=== PATIENT | female | born 1955 | race Caucasian/White ===

== ENCOUNTER 2018-01-15 09:05 | Emergency (ER) | payer MEDICARE ==
[~2018-01-15] VITALS: Ht 162.6 cm; Wt 81.1 kg
[~2018-01-15 09:05] MED LIST: ALPR-475 PO; AMLO5TAB4 PO; FERR325T18 PO; GABA300C10 PO; GLIP10TA13 PO; HYDR-3241 PO; INSU100C5 SQ-INSULIN; LEVO500T47 PO; LEVO500T8 PO; LOVA40TA2 PO; POLY17PO5 PO; POTA10TA31 PO
[2018-01-15 10:38] VITALS: BP 155/81
== END 2018-01-15 10:40 | disposition home or self-care (01) ==
LOC: ED 10:00
DX: S52.602A Unspecified fracture of lower end of left ulna, initial encounter for closed fracture (principal); E11.9 Type 2 diabetes mellitus without complications; Z87.891 Personal history of nicotine dependence; W18.30XA Fall on same level, unspecified, initial encounter; Y93.89 Activity, other specified; Y99.8 Other external cause status; Y92.828 Other wilderness area as the place of occurrence of the external cause
CPT/HCPCS: 29125; 99283

== ENCOUNTER 2018-12-15 15:57 | Inpatient (IN) | payer MEDICARE ==
[~2018-12-15] VITALS: Ht 172.7 cm; Wt 89.4 kg
[~2018-12-15 15:57] MED LIST changes: -ALPR-475 PO; +ALPR0.5T7 PO
--- NOTE | 2018-12-15 16:15 | NUR ---
"I FEEL LIKE I'M DRUNK BUT I DON'T DRINK" X THIS AM. SO REPORTS SLURRED SPEECH, "SHE DOESN'T KNOW WHAT SHES SAYING". PT WITH UNSTEADY GATE. A&OX4. FACE SYMMETRICAL, SPEECH CLEAR, +STRENGTH X 4. PT MOSTLY RESTLESS ER PA AT BEDSIDE, PT ANSWERS QUESTIONS APPROPRIATELY BUT ALSO WILL START TALKING ABOUT THINGS THAT WOULD NOT BE IN CONTEXT WITH THE CURRENT SITUATION. FOR EXAMPLE WHILE ASKING ABOUT THE EVENTS OF THIS MORNING SHE WILL SUDDENLY SAY, "I'M AT [facility], THEY PUT THE [address] IN THE BACK CORNER"
[2018-12-15 16:53] LABS: BASOPHILS # (AUTO) 0.02 x10^3/uL (0-0.1); BASOPHILS % (AUTO) 0 % (0-1); EOSINOPHILS # (AUTO) 0.08 x10^3/uL (0-0.4); EOSINOPHILS % (AUTO) 1 % (1-7); LYMPHOCYTES % (AUTO) 10 % (22-44); MD NO; MEAN CORPUSCULAR HEMOGLOBIN 34.7 pg (27.0-34.8); MEAN CORPUSCULAR HGB CONC 33.1 g/dL (32.4-35.8); MEAN PLATELET VOLUME 6.7 fL (7.4-10.4); MONOCYTES # (AUTO) 0.52 x10^3/uL (0.2-0.8); MONOCYTES % (AUTO) 8 % (2-9); NEUTROPHILS # (AUTO) 5.65 x10^3/uL (1.8-6.8); NEUTROPHILS % (AUTO) 81 % (42-75); PLATELET COUNT 229 x10^3/uL (130-400); RED BLOOD COUNT 4.26 x10^6/uL (3.82-5.3)
[2018-12-15 17:04] LABS: ALANINE AMINOTRANSFERASE 62 U/L (12-78); ALBUMIN 4.1 g/dL (3.4-5.0); ANION GAP 8 mmol/L (5-15); CALCIUM 9.1 mg/dL (8.5-10.1); CHLORIDE 109 mmol/L (98-107); CREATININE 1.42 mg/dL (0.55-1.02)
[2018-12-15 17:08] LABS: ALKALINE PHOSPHATASE 113 U/L (45-117); BILIRUBIN,TOTAL 0.4 mg/dL (0.2-1.0); TOTAL PROTEIN 7.5 g/dL (6.4-8.2); TROPONIN I < 0.015 ng/mL (0.000-0.045)
--- NOTE | 2018-12-15 17:17 | NUR ---
PT OOB AND AMBULATE TO BATHROOM. RN STANDBY ASSIST. PT GAIT ATAXIC. INSTRUCTED ON COLLECTION OF URINE SAMPLE. RN REMAINED IN BATHROOM WITH PT. PT WAS NOT COORDINATED TO BE ABLE TO HOLD URINE CUP IN PLACE. URINE HAT PLACED AND PT POSITIONED APPROPRIATELY. RN LEFT BATHROOM AND INSTRUCTED PT TO USE CALL LIGHT WHEN READY TO GET UP. RN THEN WITNESSED PT WALKING INTO HER ROOM. PT HAD VOIDED BUT DID NOT GET ANY OF THE URINE INTO THE COLLECTION HAT. PT SITUATED ON RANCHORAGE, BP AND PULSE OX IN PLACE. SIDE RAILS UP AND CALL LIGHT W/I REACH. PT VERBALIZES TO RN THAT SHE WILL USE CALL LIGHT IF SHE NEEDS TO GET OOB. AWARE OF URINE SAMPLE NOT COLLECTED.
[2018-12-15] MEDS ORDERED: LISI-170 PO (17:44)
[2018-12-15] MEDS ORDERED: GLYB3TAB3 PO (17:44)
--- NOTE | 2018-12-15 17:50 | NUR ---
PT WISPERS TO RN "DO YOU THINK THE DOCTOR THAT IS GOING TO SEE ME WILL GIVE ME ANY SLEEPING PILLS?" I ASKED HER WHY SHE WANTED SLEEPING PILLS, PT REPLIED "I CAN'T SLEEP AT NIGHT, I TAKE 12-16 BENADRYL A NIGHT" I ASKED IF SHE TOOK BENADRYL LAST NIGHT. PT RESPONDED "YES, I TOOK 2"
--- NOTE | 2018-12-15 18:02 | NUR ---
STRAIGHT CATH FOR URINE COLLECTION COMPLETED. 2ND RNALEYDA AT BEDSIDE FOR PROCEDURE. PT TOLLERATED WELL.
[2018-12-15 18:14] LABS: MICROSCOPIC NOT IND
[2018-12-15 18:19] LABS: CULTURE INDICATED? NO
[2018-12-15 18:26] LABS: AMPHETAMINE SCREEN, URINE Negative (Negative); BARBITURATE SCREEN, URINE Negative (Negative); BENZODIAZEPINE SCREEN, URINE Negative (Negative); CANNABINOID SCREEN, URINE Negative (Negative); COCAINE SCREEN, URINE Negative (Negative); METHADONE SCREEN, URINE Negative (Negative); OPIATE SCREEN, URINE Positive (Negative)
--- NOTE | 2018-12-15 18:42 | NUR ---
, RON [phone]
--- NOTE | 2018-12-15 18:42 | NUR ---
DR CHRISTIE AT BEDSIDE, PLAN FOR ADMIT EXPLAINED TO PT. PER PT REQUEST I NOTIFIED HER OF PLAN FOR ADMIT.
--- NOTE | 2018-12-15 19:09 | NUR ---
REPORT GIVEN TO PAULETTE ALBERTO FOR ROOM 419. PRIMARY RN PLACEING IV AT THIS TIME.
[2018-12-15 19:32] LABS: SALICYLATE LEVEL < 1.7 mg/dL (2.8-20.0)
[2018-12-15 20:00] VITALS: BP 120/77
[2018-12-15] MEDS: SODIUM CHLORIDE 0.9% 1,000 ML IV SCH (20:26)
[2018-12-15] MEDS ORDERED: BISACODYL 10 MG SUPP PR PRN (20:30)
[2018-12-15] MEDS ORDERED: GLYBURIDE MICRONIZED 3 MG PO SCH (20:30)
[2018-12-15 21:21] LABS: HEMOGLOBIN A1C 6.8 % (4.2-6.3)
[2018-12-15] MEDS ORDERED: OMNIPAQUE 350 MG/ML, 100ML BOTTLE ONE (21:30)
[2018-12-15] MEDS: LOVASTATIN 40 MG TABLET PO SCH (21:46)
[2018-12-15] MEDS: LISINOPRIL 20 MG TABLET PO SCH (21:46)
[2018-12-15] MEDS: TEMAZEPAM 15 MG CAPSULE PO PRN (21:46)
[2018-12-15] MEDS: HEPARIN 5,000 UNITS/ML, 1ML SQ SCH (21:46)
[2018-12-15 22:00] VITALS: BP 130/63
[2018-12-16] VITALS (9 sets, daily range): BP systolic 122–197; BP diastolic 71–96
[2018-12-16] MEDS: HEPARIN 5,000 UNITS/ML, 1ML SQ SCH ×3 (05:25→20:54)
[2018-12-16] MEDS: SODIUM CHLORIDE 0.9% 1,000 ML IV SCH (05:27)
[2018-12-16 05:50] LABS: BASOPHILS # (AUTO) 0.02 x10^3/uL (0-0.1); BASOPHILS % (AUTO) 0 % (0-1); EOSINOPHILS # (AUTO) 0.04 x10^3/uL (0-0.4); EOSINOPHILS % (AUTO) 1 % (1-7); LYMPHOCYTES # (AUTO) 1.12 x10^3/uL (1-3.4); LYMPHOCYTES % (AUTO) 20 % (22-44); MD NO; MEAN CORPUSCULAR HEMOGLOBIN 34.7 pg (27.0-34.8); MEAN CORPUSCULAR VOLUME 105.5 fL (80-100); MEAN PLATELET VOLUME 7.1 fL (7.4-10.4); MONOCYTES # (AUTO) 0.51 x10^3/uL (0.2-0.8); MONOCYTES % (AUTO) 9 % (2-9); NEUTROPHILS # (AUTO) 3.87 x10^3/uL (1.8-6.8); NEUTROPHILS % (AUTO) 70 % (42-75); PLATELET COUNT 190 x10^3/uL (130-400); RED BLOOD COUNT 4.11 x10^6/uL (3.82-5.3); RED CELL DISTRIBUTION WIDTH 15.4 % (9.6-15.2)
[2018-12-16 05:57] LABS: ANION GAP 8 mmol/L (5-15); CALCIUM 8.6 mg/dL (8.5-10.1); CHLORIDE 109 mmol/L (98-107); CHOLESTEROL, TOTAL 191 mg/dL (140-239); CREATININE 1.19 mg/dL (0.55-1.02); TRIGLYCERIDES 593 mg/dL (50-200)
[2018-12-16 05:59] LABS: HDL CHOLESTEROL (DIRECT) 38 mg/dL (40-60)
[2018-12-16] MEDS: LISINOPRIL 20 MG TABLET PO SCH ×2 (09:06→20:54)
[2018-12-16] MEDS: ASPIRIN 81 MG TABLET CHEW PO/NG SCH (09:07)
[2018-12-16] MEDS: TEMAZEPAM 15 MG CAPSULE PO PRN (20:54)
[2018-12-16] MEDS: LOVASTATIN 40 MG TABLET PO SCH (20:54)
[2018-12-17 00:06] VITALS: BP 132/88
[2018-12-17 04:00] VITALS: BP 166/83
[2018-12-17] MEDS: HEPARIN 5,000 UNITS/ML, 1ML SQ SCH ×2 (04:46→13:51)
[2018-12-17 07:05] VITALS: BP 179/92
[2018-12-17 07:58] LABS: ANION GAP 5 mmol/L (5-15); CHLORIDE 105 mmol/L (98-107)
[2018-12-17] MEDS: ASPIRIN 81 MG TABLET CHEW PO/NG SCH (07:58)
[2018-12-17] MEDS: LISINOPRIL 20 MG TABLET PO SCH (07:59)
[2018-12-17 08:01] LABS: CREATININE 1.01 mg/dL (0.55-1.02)
[2018-12-17] MEDS ORDERED: GEMFIBROZIL 600 MG TABLET PO SCH (09:00)
[2018-12-17 12:15] VITALS: BP 163/91
[2018-12-17 16:32] VITALS: BP 157/92
[2018-12-17] MEDS ORDERED: GEMF600T8 PO (16:49)
[2018-12-17] MEDS ORDERED: ASPI-515 PO (16:49)
== END 2018-12-17 19:12 | disposition home or self-care (01) | DRG 91 ==
LOC: ED 18:43 → 4WST 18:48 → ED 18:52 → 4WST 12-17 06:32
PROVIDERS: ADMIT Internal Medicine; ATTEND Internal Medicine
PROC: B3151ZZ Fluoroscopy of Bilateral Common Carotid Arteries using Low Osmolar Contrast (ICD-10-PCS; principal; 2018-12-15)
PROC: B31G1ZZ Fluoroscopy of Bilateral Vertebral Arteries using Low Osmolar Contrast (ICD-10-PCS; 2018-12-15)
PROC: B3181ZZ Fluoroscopy of Bilateral Internal Carotid Arteries using Low Osmolar Contrast (ICD-10-PCS; 2018-12-15)
PROC: B31C1ZZ Fluoroscopy of Bilateral External Carotid Arteries using Low Osmolar Contrast (ICD-10-PCS; 2018-12-15)
DX: G92 Toxic encephalopathy (principal); N17.0 Acute kidney failure with tubular necrosis; G45.9 Transient cerebral ischemic attack, unspecified; E11.22 Type 2 diabetes mellitus with diabetic chronic kidney disease; E11.51 Type 2 diabetes mellitus with diabetic peripheral angiopathy without gangrene; E78.5 Hyperlipidemia, unspecified; G47.00 Insomnia, unspecified; G89.29 Other chronic pain; I13.10 Hypertensive heart and chronic kidney disease without heart failure, with stage 1 through stage 4 chronic kidney disease, or unspecified chronic kidney disease; I27.20 Pulmonary hypertension, unspecified; N18.9 Chronic kidney disease, unspecified; S80.212A Abrasion, left knee, initial encounter; W19.XXXA Unspecified fall, initial encounter; Z79.84 Long term (current) use of oral hypoglycemic drugs; Z79.891 Long term (current) use of opiate analgesic; Z83.3 Family history of diabetes mellitus; Z87.891 Personal history of nicotine dependence; Z91.5 Personal history of self-harm; M54.9 Dorsalgia, unspecified; E11.40 Type 2 diabetes mellitus with diabetic neuropathy, unspecified; T50.905A Adverse effect of unspecified drugs, medicaments and biological substances, initial encounter; Y92.89 Other specified places as the place of occurrence of the external cause
CPT/HCPCS: 0399T; 36415; 70450; 70496; 70498; 70551; 80048; 80053; 80061; 80307; 81003; 82140; 82607; 82962; 83036; 84443; 84484; 85025; 93005; 93306; 93880; 99291; G0378; J1644; Q9967; 92523-GN; J7030

== ENCOUNTER 2019-12-23 14:56 | Emergency (ER) | payer MEDICARE ==
[~2019-12-23] VITALS: Ht 170.2 cm; Wt 80.3 kg
[~2019-12-23 14:56] MED LIST changes: +ASPI-515 PO; +GEMF600T8 PO; +GLYB3TAB3 PO; +LISI-170 PO
--- NOTE | 2019-12-23 15:28 | NUR ---
PT STATES RT FLANK PAIN, RT POSTERIOR LOWER RIB PAIN, AND RT LOW ABD PAIN X3 WEEKS. PT DENIES URINARY SYMPTOMS. PT PLACED ON MONITORS, VSS. PT UP TO VOID, UNABLE TO VOID AT THIS TIME, AWARE NEEDS UA. WILL FOLLOW ORDERS.
[2019-12-23] MEDS ORDERED: KETOROLAC 30 MG/1 ML ONE (15:31)
[2019-12-23 15:44] LABS: BASOPHILS # (AUTO) 0.03 x10^3/uL (0-0.1); BASOPHILS % (AUTO) 0 % (0-1); EOSINOPHILS # (AUTO) 0.27 x10^3/uL (0-0.4); EOSINOPHILS % (AUTO) 3 % (1-7); LYMPHOCYTES # (AUTO) 1.33 x10^3/uL (1-3.4); LYMPHOCYTES % (AUTO) 14 % (22-44); MD NO; MEAN CORPUSCULAR HEMOGLOBIN 34.1 pg (27.0-34.8); MEAN CORPUSCULAR HGB CONC 33.3 g/dL (32.4-35.8); MEAN CORPUSCULAR VOLUME 102.4 fL (80-100); MEAN PLATELET VOLUME 7.6 fL (7.4-10.4); MONOCYTES # (AUTO) 0.36 x10^3/uL (0.2-0.8); MONOCYTES % (AUTO) 4 % (2-9); NEUTROPHILS # (AUTO) 7.65 x10^3/uL (1.8-6.8); NEUTROPHILS % (AUTO) 79 % (42-75); PLATELET COUNT 282 x10^3/uL (130-400); RED BLOOD COUNT 3.96 x10^6/uL (3.82-5.3); RED CELL DISTRIBUTION WIDTH 15.9 % (9.6-15.2)
[2019-12-23 15:49] LABS: ALANINE AMINOTRANSFERASE 24 U/L (12-78); ALBUMIN 3.8 g/dL (3.4-5.0); ANION GAP 8 mmol/L (5-15); CALCIUM 8.7 mg/dL (8.5-10.1); CHLORIDE 109 mmol/L (98-107)
[2019-12-23 15:51] LABS: ALKALINE PHOSPHATASE 91 U/L (45-117); BILIRUBIN,TOTAL 0.3 mg/dL (0.2-1.0); TOTAL PROTEIN 7.2 g/dL (6.4-8.2)
[2019-12-23] MEDS ORDERED: KETOROLAC 30 MG/1 ML IM ONE (16:00)
--- NOTE | 2019-12-23 16:16 | NUR ---
PT'S UA COLLECTED, SENT TO LAB. PT AWAITING IMAGING.
[2019-12-23 16:50] LABS: MICROSCOPIC AUTO
[2019-12-23] MEDS ORDERED: CEFTRIAXONE PMX 1GM/50ML 50 ML ONE (17:05)
--- NOTE | 2019-12-23 17:29 | NUR ---
TASK RN: IV ESTABLISHED AND IV ABX/IVF STARTED. PER MD DO NOT NEED BLOOD CULTURES BEFORE ANTIBIOTICS.
[2019-12-23] MEDS ORDERED: CEFTRIAXONE PMX 1GM/50ML 50 ML IV ONE (17:30)
[2019-12-23] MEDS ORDERED: SODIUM CHLORIDE 0.9%, 500ML IVBOLUS ONE ×2 (17:30)
[2019-12-23] MEDS ORDERED: MORPHINE SULFATE 4 MG/ML, 1ML IVPush ONE (18:00)
[2019-12-23] MEDS ORDERED: ONDANSETRON 2MG/ML, 2ML IVPush ONE (18:00)
[2019-12-23] MEDS ORDERED: HYDROcodone/APAP 5/325 TABLET ONE (18:16)
[2019-12-23] MEDS ORDERED: HYDROcodone/APAP 5/325 TABLET PO ONE (18:30)
--- NOTE | 2019-12-23 18:45 | NUR ---
PT STATES PAIN DECREASED, PAIN MEDICATION EFFECTIVE. PT'S CALLED, WILL COME PICK PT UP PT WILL BE ER D/C. IVF AND IVABX COMPLETED PER ORDERS.
--- NOTE | 2019-12-23 19:14 | NUR ---
PT OK FOR D/C PER ERMD. PT AND PT'S GIVEN D/C INSTRUCTIONS, VERBALIZED UNDERSTANDING. PT WITH STEADY GAIT UPON D/C., HAS ALL OWN BELONGINGS.
[2019-12-23 19:16] VITALS: BP 151/91
== END 2019-12-23 19:18 | disposition home or self-care (01) ==
LOC: ED 17:23
DX: N10 Acute pyelonephritis (principal); K29.00 Acute gastritis without bleeding; I10 Essential (primary) hypertension; E11.9 Type 2 diabetes mellitus without complications; E78.5 Hyperlipidemia, unspecified
CPT/HCPCS: 36415; 74176; 80053; 81001; 83690; 85025; 87077; 87086; 96365; 96372; 99285; J0696; J1885; J7040; 87186

== ENCOUNTER 2020-01-05 15:40 | Emergency (ER) | payer MEDICARE ==
[~2020-01-05] VITALS: Ht 170.2 cm; Wt 77.8 kg
--- NOTE | 2020-01-05 16:42 | NUR ---
VAT CLEANER: NIL X 1
--- NOTE | 2020-01-05 17:00 | NUR ---
NAIL MAKING MACHINE TENDER: PT TO ROOM FROM [facility]. PT AMBULATORY WITH STEADY GAIT. JS
--- NOTE | 2020-01-05 17:06 | NUR ---
BREAK RN: THIS IS A 64 YEAR OLD FEMALE WHO C/O OF ABD PAIN AND BILATE FLANK PAIN. WAS TREATED HERE 3 WEEKS AGO AND SENT HOME WITH CEFDINIR FOR UTI.
--- NOTE | 2020-01-05 17:06 | NUR ---
1705 NOTE NOT CHARTED BY JOSEMANUEL ALBERTO
[2020-01-05 17:23] LABS: BASOPHILS # (AUTO) 0.11 x10^3/uL (0-0.1); BASOPHILS % (AUTO) 1 % (0-1); EOSINOPHILS # (AUTO) 0.24 x10^3/uL (0-0.4); EOSINOPHILS % (AUTO) 3 % (1-7); LYMPHOCYTES # (AUTO) 1.76 x10^3/uL (1-3.4); LYMPHOCYTES % (AUTO) 19 % (22-44); MD NO; MEAN CORPUSCULAR HEMOGLOBIN 33.9 pg (27.0-34.8); MEAN CORPUSCULAR VOLUME 102.7 fL (80-100); MEAN PLATELET VOLUME 7.3 fL (7.4-10.4); MONOCYTES # (AUTO) 0.37 x10^3/uL (0.2-0.8); MONOCYTES % (AUTO) 4 % (2-9); NEUTROPHILS # (AUTO) 6.65 x10^3/uL (1.8-6.8); NEUTROPHILS % (AUTO) 73 % (42-75); PLATELET COUNT 400 x10^3/uL (130-400); RED BLOOD COUNT 3.84 x10^6/uL (3.82-5.3); RED CELL DISTRIBUTION WIDTH 15.4 % (9.6-15.2)
[2020-01-05 17:28] LABS: ALANINE AMINOTRANSFERASE 21 U/L (12-78); ALBUMIN 3.9 g/dL (3.4-5.0); ANION GAP 8 mmol/L (5-15); CALCIUM 9.7 mg/dL (8.5-10.1); CHLORIDE 116 mmol/L (98-107); CREATININE 1.29 mg/dL (0.55-1.02)
[2020-01-05 17:30] LABS: ALKALINE PHOSPHATASE 105 U/L (45-117); BILIRUBIN,TOTAL 0.2 mg/dL (0.2-1.0); TOTAL PROTEIN 7.5 g/dL (6.4-8.2)
--- NOTE | 2020-01-05 17:37 | NUR ---
PT REPORT FROM DOLLY BEASLEY. PT CARE TO BE RESUMED.
[2020-01-05 17:38] LABS: MICROSCOPIC AUTO
[2020-01-05] MEDS ORDERED: MEMA5TAB42 PO (17:46)
[2020-01-05] MEDS ORDERED: LOVA20TA2 PO (17:46)
[2020-01-05] MEDS ORDERED: CEFD300C37 PO (17:46)
[2020-01-05] MEDS ORDERED: GLIP5TAB10 PO (17:46)
[2020-01-05] MEDS ORDERED: METO-282 PO (17:46)
[2020-01-05] MEDS ORDERED: QUET50TA PO (17:46)
[2020-01-05] MEDS ORDERED: GABA300T2 PO (17:46)
[2020-01-05] MEDS ORDERED: FAMO20TA7 PO (17:46)
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
--- NOTE | 2020-01-05 18:38 | NUR ---
MESSAGE FROM INTERNET ARCHITECT: "call @ [phone]." SPOKE W/ PT RE: MESSAGE. VERBAL PERMISSION TO RELEASE INFORMATION TO SPOUSE: RON KIDD ( 11/09/1967). PT STATES HER GRANDSON HAS HER CELL PHONE. CALLED SPOUSE, PROVIDED GENERAL INFORMATION. SPOUSE ASKED FOR CALL BACK WHEN DETERMINATION IS MADE.
[2020-01-05] MEDS ORDERED: OMNIPAQUE 350 MG/ML, 100ML BOTTLE ONE (19:08)
[2020-01-05 19:45] VITALS: BP 191/94
[2020-01-05] MEDS ORDERED: FAMOTIDINE 20 MG TABLET PO ONE (21:00)
[2020-01-05] MEDS ORDERED: FAMOTIDINE 20 MG TABLET ONE (21:02)
[2020-01-05] MEDS ORDERED: MAALOX/HYOSCYAMINE/LIDOCAINE 45 ML BTL ONE (21:02)
[2020-01-05] MEDS: MAALOX/HYOSCYAMINE/LIDOCAINE 45 ML BTL PO ONE ×2 (21:04→22:07)
--- NOTE | 2020-01-05 21:09 | NUR ---
PT DRESSED FOR DISCHARGE. PEPCID GIVEN PER EMAR. PT REFUSED GI COCKTAIL; ERP WILL BE NOTIFIED. DISCUSSED MEDICATION; PT CONTINUED TO REFUSE. PT UPSET ABOUT NOT GETTING "PAIN MEDICATION". FIRMLY STATED "THEY GAVE ME THIS (CEFDENIR) AND IT DIDN'T HELP WITH THE PAIN!" INFORMED PT THAT THE MEDICATION WAS AN ANTIBIOTIC, NOT PAIN MEDICINE. PT NOT OPEN TO RECEIVING INFORMATION. WALKED ANGRILY TO [place] BR W/ QUICK STEADY GAIT.
--- NOTE | 2020-01-05 21:42 | NUR ---
PT FOUND SITTING ON CHAIR NEAR MAIN NURSES STATION. PER RESPIRATORY MEDICINE PHYSICIAN: PT'S DAUGHTER ON HER WAY TO [place] PT; DAUGHTER STATES PT HAS DEMENTIA AND IS UNABLE TO NAVIGATE A TAXI. DEMENTIA DX NOT MENTIONED BY PT NOR SPOUSE. DC INSTRUCTIONS DISCUSSED W/ PT. PT ADEMENTLY STATED THAT "I DO NOT HAVE A URINARY TRACT INFECTION! I DON'T KNOW WHY THESE DOCTORS THINK I DO!" WHILE JABBING HER FINGER AT THE INSTRUCTIONS. PT ANGRILY ASKED "WHAT DO THESE DOCTORS DO, GO HOME AND LIBERTARIAN AT NIGHT?" THIS RN CHOSE NOT TO REPLY TO THAT QUESTION. DC DOCUMENT GIVEN TO PT. ASKED PT TO STAY IN HER CURRENT LOCATION UNTIL HER DAUGHTER ARRIVE.
== END 2020-01-05 21:27 ==
LOC: ED 17:28
DX: N30.00 Acute cystitis without hematuria (principal); R93.5 Abnormal findings on diagnostic imaging of other abdominal regions, including retroperitoneum; I10 Essential (primary) hypertension; E11.9 Type 2 diabetes mellitus without complications; G89.29 Other chronic pain; E78.5 Hyperlipidemia, unspecified; Z87.891 Personal history of nicotine dependence
CPT/HCPCS: 36415; 74177; 76700; 80053; 81001; 83690; 85025; 87086; 99285; Q9967

== ENCOUNTER 2020-02-27 17:07 | Emergency (ER) | payer MEDICARE ==
[~2020-02-27] VITALS: Ht 152.4 cm; Wt 75.0 kg
[~2020-02-27 17:07] MED LIST changes: +CEFD300C37 PO; +FAMO20TA7 PO; +GABA300T2 PO; +GLIP5TAB10 PO; +LOVA20TA2 PO; +MEMA5TAB42 PO; +METO-282 PO; +QUET50TA PO
[2020-02-27 17:31] VITALS: BP 136/59
--- NOTE | 2020-02-27 18:20 | NUR ---
PT TO ROOM FROM LOBBY. NAD.
--- NOTE | 2020-02-27 18:35 | NUR ---
PT WC'D TO ROOM 22 W/ C/O L FOOT PAIN AND SWELLING AFTER PT STEPPED OFF A CURB AND TWISTED FOOT OVER THE CURB. PT STATES IT HAPPENED 3-4 DAYS AGO. CMS INTACT. PT RESTING ON JS. Addendum: 02/27/20 at 1836 by BNICHOLS CMS INTACT.
[2020-02-27] MEDS ORDERED: KETOROLAC 30 MG/1 ML ONE (18:48)
[2020-02-27] MEDS ORDERED: ACETAMINOPHEN 325 MG TABLET ONE (18:48)
[2020-02-27] MEDS ORDERED: ACETAMINOPHEN 325 MG TABLET PO ONE (19:00)
[2020-02-27] MEDS ORDERED: KETOROLAC 30 MG/1 ML IM ONE (19:00)
== END 2020-02-27 19:06 | disposition home or self-care (01) ==
LOC: ED 17:30
DX: S93.492A Sprain of other ligament of left ankle, initial encounter (principal); S93.622A Sprain of tarsometatarsal ligament of left foot, initial encounter; I10 Essential (primary) hypertension; E78.5 Hyperlipidemia, unspecified; E11.21 Type 2 diabetes mellitus with diabetic nephropathy; W01.0XXA Fall on same level from slipping, tripping and stumbling without subsequent striking against object, initial encounter; Y93.01 Activity, walking, marching and hiking; Y92.009 Unspecified place in unspecified non-institutional (private) residence as the place of occurrence of the external cause; Y99.8 Other external cause status
CPT/HCPCS: 73590; 73610; 73630; 96372; 99284; J1885